=== PATIENT | female | born 1980 | race Hispanic/Latino ===

== ENCOUNTER 2022-04-08 01:15 | Emergency (ER) | payer OTHER ==
[~2022-04-08] VITALS: Ht 160 cm; Wt 87.1 kg
[2022-04-08 01:35] LABS: BASOPHILS % (AUTO) 0.4 % (0.0-5.0); EOSINOPHILS % (AUTO) 2.4 % (0.0-8.0); LYMPHOCYTES % (AUTO) 38.3 % (21.0-51.0); MEAN CORPUSCULAR HEMOGLOBIN 30.1 pg (27.0-33.0); MEAN CORPUSCULAR HGB CONC 33.8 g/dL (32.0-36.0); MEAN CORPUSCULAR VOLUME 89.2 fL (79-99); MONOCYTES % (AUTO) 6.4 % (3.0-13.0); NEUTROPHILS % (AUTO) 52.3 % (40.0-77.0); PLATELET COUNT (AUTO) 218 K/uL (130-400); RED BLOOD CELL COUNT(AUTO) 4.71 MIL/uL (4.00-5.50); RED CELL DISTRIBUTION WIDTH 12.2 % (11.0-15.5)
[2022-04-08 01:36] LABS: BILIRUBIN,URINE NEGATIVE (NEGATIVE); COLOR,URINE YELLOW (YELLOW); GLUCOSE, URINE (UA) NEGATIVE (NEGATIVE); KETONES,URINE NEGATIVE (NEGATIVE); LEUKOCYTE ESTERASE ,URINE NEGATIVE (NEGATIVE); NITRATE,URINE NEGATIVE (NEGATIVE); OCCULT BLOOD,URINE SMALL (NEGATIVE); PROTEIN,URINE NEGATIVE (NEGATIVE)
[2022-04-08 01:37] LABS: APPEARANCE,URINE SLIGHTLY CLOUDY (CLEAR)
[2022-04-08 01:40] LABS: HCG,QUALITATIVE URINE NEGATIVE (NEGATIVE)
[2022-04-08] MEDS ORDERED: KETOROLAC 30MG VIAL (30MG/ML) ONE (01:42)
[2022-04-08] MEDS ORDERED: ONDANSETRON 4MG INJ ONE (01:42)
[2022-04-08] MEDS ORDERED: MORPHINE 4 MG SYG ONE (01:43)
[2022-04-08 01:44] LABS: CREATININE 0.8 mg/dL (0.5-1.5); POTASSIUM 3.5 mmol/L (3.5-5.1)
[2022-04-08 01:46] LABS: BACTERIA,URINE Few /HPF (None Seen); SQUAMOUS EPITHELIAL CELL,UR Moderate /HPF (0-2)
[2022-04-08 01:48] LABS: ALBUMIN 3.5 g/dL (3.5-5.0); TOTAL PROTEIN, SERUM 7.5 g/dL (6.0-8.3)
[2022-04-08] MEDS ORDERED: MORPHINE 4 MG SYG IVP ONE (02:00)
[2022-04-08] MEDS ORDERED: 0.9%NACL 1000ML 1,000 ML IV ONE (02:00)
[2022-04-08] MEDS ORDERED: KETOROLAC 30MG VIAL (30MG/ML) IVP ONE (02:00)
[2022-04-08] MEDS ORDERED: ONDANSETRON 4MG INJ IVP ONE (02:00)
[2022-04-08] MEDS ORDERED: TAMS-1 PO (04:01)
[2022-04-08] MEDS ORDERED: ACET-2079 PO (04:01)
[2022-04-08 04:10] VITALS: BP 98/56
== END 2022-04-08 04:11 | disposition home or self-care (01) ==
LOC: EDH 01:15
DX: N20.1 Calculus of ureter (principal); E11.9 Type 2 diabetes mellitus without complications; Z79.1 Long term (current) use of non-steroidal anti-inflammatories (NSAID); Z88.8 Allergy status to other drugs, medicaments and biological substances
CPT/HCPCS: 99284; 74176; 96374; 96375; 96361; 80053; 83690; 85025; 87088; 81001; 81025; 36415; J7030; J2405; J2270; J1885